=== PATIENT | female | born 1955 | race Hispanic/Latino ===

== ENCOUNTER 2022-09-16 13:00 | Observation (INO) | payer MEDICARE ==
[~2022-09-16] VITALS: Ht 154.9 cm; Wt 92.5 kg
[2022-09-20 10:19] LABS: BASOPHILS % (AUTO) 0.1 % (0.0-5.0); EOSINOPHILS % (AUTO) 2.9 % (0.0-8.0); HEMATOCRIT 41.8 % (36-48); LYMPHOCYTES % (AUTO) 20.5 % (21.0-51.0); MEAN CORPUSCULAR HEMOGLOBIN 29.4 pg (27.0-33.0); MEAN CORPUSCULAR HGB CONC 32.5 g/dL (32.0-36.0); MEAN CORPUSCULAR VOLUME 90.5 fL (79-99); MONOCYTES % (AUTO) 9.7 % (3.0-13.0); NEUTROPHILS % (AUTO) 66.5 % (40.0-77.0); PLATELET COUNT (AUTO) 186 K/uL (130-400); RED BLOOD CELL COUNT(AUTO) 4.62 MIL/uL (4.00-5.50); RED CELL DISTRIBUTION WIDTH 14.2 % (11.0-15.5); WHITE BLOOD COUNT (AUTO) 7.5 K/uL (4.8-10.8)
[2022-09-20 10:26] LABS: ALBUMIN 3.6 g/dL (3.5-5.0); CARBON DIOXIDE 31 mmol/L (21-32); CHLORIDE 102 mmol/L (101-111); CREATININE 0.7 mg/dL (0.5-1.5); GLOMERULAR FILTR. RATE CALC 88 mL/min (>60); GLUCOSE,RANDOM 103 mg/dL (70-105); POTASSIUM 4.3 mmol/L (3.5-5.1); SODIUM SERUM 137 mmol/L (136-145); UREA NITROGEN, BLOOD 17 mg/dL (7-18)
[2022-09-20 10:27] LABS: CRP QUANTITATIVE < 2.00 mg/L (0.00-9.0)
[2022-09-20 10:29] LABS: INR 0.93 (0.85-1.15); PROTHROMBIN TIME 9.9 SEC (9.6-11.6)
[2022-09-20 10:30] LABS: PARTIAL THROMBOPLASTIN TIME 25.4 SEC (26.3-35.5)
[2022-09-20 10:33] LABS: APPEARANCE,URINE CLEAR (CLEAR); BILIRUBIN,URINE NEGATIVE (NEGATIVE); COLOR,URINE YELLOW (YELLOW); GLUCOSE, URINE (UA) NEGATIVE (NEGATIVE); KETONES,URINE NEGATIVE (NEGATIVE); LEUKOCYTE ESTERASE ,URINE 25 Leu/uL (NEGATIVE); NITRATE,URINE NEGATIVE (NEGATIVE); OCCULT BLOOD,URINE NEGATIVE (NEGATIVE); PROTEIN,URINE 10 mg/dL (NEGATIVE); UROBILINOGEN,URINE 0.2 mg/dL (0.2-1.0)
[2022-09-20 10:55] LABS: BACTERIA,URINE FEW /HPF (None Seen); MUCUS,URINE FEW LPF (None Seen); SQUAMOUS EPITHELIAL CELL,UR FEW /HPF (0-2)
[2022-09-21 10:25] VITALS: BP 135/65
[2022-09-21] MEDS ORDERED: ACET-2027 PO (11:06)
[2022-09-21] MEDS ORDERED: METO-408 PO (11:06)
[2022-09-21] MEDS ORDERED: MONT-39 PO (11:06)
[2022-09-21] MEDS ORDERED: LISI20TA24 PO (11:06)
[2022-09-21] MEDS ORDERED: AEC81 PO (11:06)
[2022-09-21] MEDS ORDERED: VITAMIN D PO (11:06)
[2022-09-21] MEDS ORDERED: BENZ-70 PO (11:06)
[2022-09-21] MEDS ORDERED: OMEP40CA21 PO (11:06)
[2022-09-22] VITALS (22 sets, daily range): BP systolic 110–159; BP diastolic 52–72
[2022-09-22] MEDS ORDERED: LACTATED RINGERS 1000ML 1,000 ML IV ONE (07:57)
[2022-09-22] MEDS: CEFAZOLIN SODIUM 1 GM VIAL IVP SCH ×3 (08:00→21:06)
[2022-09-22] MEDS ORDERED: KETOROLAC 30MG VIAL (30MG/ML) ONE ×2 (08:50→09:34)
[2022-09-22] MEDS ORDERED: BUPIVACAINE/PF 0.5% 30ML VIAL ONE (08:50)
[2022-09-22] MEDS ORDERED: BUPIVACAINE/PF 0.25% 30ML VIAL IJ ONE (09:34)
[2022-09-22] MEDS ORDERED: KETAMINE 50MG/ML SYRINGE 50 MG/ML DISP.SYRIN IV ONE (10:11)
[2022-09-22] MEDS ORDERED: ROPIVACAINE 0.5% 5MG/ML 30ML IJ ONE (10:11)
[2022-09-22] MEDS ORDERED: TRANEXAMIC ACID 1000MG/10ML ONE (10:22)
[2022-09-22] MEDS ORDERED: LIDOCAINE PF 100MG/5ML (2%) SYRINGE 5ML ONE (11:45)
[2022-09-22] MEDS ORDERED: SUCCINYLCHOLINE 200MG/10ML SYR ONE (11:45)
[2022-09-22] MEDS ORDERED: DEXAMETHASONE SOD PHOSPHATE 10MG/ML 1ML VIAL ONE (11:46)
[2022-09-22] MEDS ORDERED: ONDANSETRON 4MG INJ ONE (11:46)
[2022-09-22] MEDS ORDERED: GLYCOPYRROLATE 1 MG/5 ML SYRINGE ONE (11:46)
[2022-09-22] MEDS ORDERED: MIDAZOLAM HCL 1 MG/ML 2ML VIAL ONE (11:47)
[2022-09-22] MEDS ORDERED: PROPOFOL 10 MG/ML 20ML VIAL IV ONE (11:47)
[2022-09-22] MEDS ORDERED: NEOSTIGMINE 5MG/5ML SYR IV ONE (11:47)
[2022-09-22] MEDS ORDERED: ROCURONIUM 10MG/1ML SYR 10 MG/ML ML ONE ×2 (11:47→13:03)
[2022-09-22] MEDS ORDERED: FENTANYL CITRATE PF 50 MCG/1 ML 2ML VIAL ONE (11:48)
[2022-09-22] MEDS ORDERED: TRANEXAMIC ACID 1000MG/10ML IV ONE (14:14)
[2022-09-22] MEDS ORDERED: 0.9%NACL 1000ML 1,000 ML IV SCH (15:00)
[2022-09-22] MEDS ORDERED: LIDOCAINE HCL-MPF 1% 2ML VIAL IV PRN (15:00)
[2022-09-22] MEDS ORDERED: KCL 20 MEQ ERTAB PO PRN (15:00)
[2022-09-22] MEDS ORDERED: POTASSIUM CHLORIDE 10% ELIXIR 20 MEQ/15 ML UDCUP PO PRN (15:00)
[2022-09-22] MEDS ORDERED: FERROUS FUMARATE 324 MG TABLET PO PRN (15:00)
[2022-09-22] MEDS ORDERED: CALCIUM CARB 500MG PO PRN (15:00)
[2022-09-22] MEDS ORDERED: ONDANSETRON 4MG INJ IVP PRN (15:00)
[2022-09-22] MEDS ORDERED: POTASSIUM CHLORIDE 20MEQ/100ML 100 ML IV PRN (15:00)
[2022-09-22] MEDS ORDERED: MEPERIDINE-PF 25 MG/ML SYG ONE (15:32)
[2022-09-22] MEDS ORDERED: KETOROLAC 15MG/ML VIAL (15MG/ML) IV PRN (18:00)
[2022-09-22] MEDS ORDERED: CYCLOBENZAPRINE HCL 10 MG TABLET PO PRN (18:00)
[2022-09-22] MEDS ORDERED: HYDROCODONE/ACETAMINOPHEN 5/325 MG TAB PO PRN (18:00)
[2022-09-22] MEDS ORDERED: KETOROLAC 15MG/ML VIAL (15MG/ML) ONE (18:03)
[2022-09-22] MEDS ORDERED: MONTELUKAST SODIUM 10 MG TAB PO PRN (19:00)
[2022-09-22] MEDS ORDERED: PANTOPRAZOLE 40 MG TAB DR PO PRN (19:00)
[2022-09-22] MEDS ORDERED: BENZONATATE 100 MG CAPSULE PO PRN (19:00)
[2022-09-22] MEDS ORDERED: LISINOPRIL 20 MG TABLET ONE (19:56)
[2022-09-22] MEDS: DOCUSATE SODIUM 100 MG CAP PO SCH (21:06)
[2022-09-22] MEDS: LISINOPRIL 20 MG TABLET PO SCH (21:07)
[2022-09-22] MEDS: GABAPENTIN 100 MG CAPSULE PO SCH (21:16)
[2022-09-23] MEDS: HYDROCODONE/ACETAMINOPHEN 5/325 MG TAB PO PRN ×3 (01:03→20:24)
[2022-09-23] MEDS: CEFAZOLIN SODIUM 1 GM VIAL IVP SCH (03:30)
[2022-09-23 04:25] VITALS: BP 105/60
[2022-09-23 05:32] LABS: HEMATOCRIT 35.9 % (36-48); MEAN CORPUSCULAR HEMOGLOBIN 29.5 pg (27.0-33.0); MEAN CORPUSCULAR HGB CONC 33.1 g/dL (32.0-36.0); MEAN CORPUSCULAR VOLUME 88.9 fL (79-99); RED BLOOD CELL COUNT(AUTO) 4.04 MIL/uL (4.00-5.50); RED CELL DISTRIBUTION WIDTH 13.8 % (11.0-15.5)
[2022-09-23 05:51] LABS: CREATININE 0.9 mg/dL (0.5-1.5); POTASSIUM 4.3 mmol/L (3.5-5.1)
[2022-09-23 07:30] VITALS: BP 90/56
[2022-09-23] MEDS: POLYETHYLENE GLYCOL 3350 17 GM POWD.PACK PO SCH (09:19)
[2022-09-23] MEDS: GABAPENTIN 100 MG CAPSULE PO SCH ×3 (09:19→19:30)
[2022-09-23] MEDS: DOCUSATE SODIUM 100 MG CAP PO SCH ×2 (09:19→19:30)
[2022-09-23] MEDS: ASPIRIN 325MG TAB PO SCH (09:19)
[2022-09-23] MEDS: METOPROLOL SUCCINATE 25 MG TAB.SR.24H PO SCH (09:19)
[2022-09-23 12:00] VITALS: BP 90/51
[2022-09-23 16:00] VITALS: BP 92/44
[2022-09-23] MEDS: LISINOPRIL 20 MG TABLET PO SCH ×2 (19:31→20:24)
[2022-09-23 20:00] VITALS: BP 104/54
[2022-09-24] VITALS: BP 102/55
[2022-09-24] MEDS: HYDROCODONE/ACETAMINOPHEN 5/325 MG TAB PO PRN ×2 (02:53→07:56)
[2022-09-24 04:00] VITALS: BP 100/54
[2022-09-24] MEDS: ASPIRIN 325MG TAB PO SCH (07:55)
[2022-09-24] MEDS: POLYETHYLENE GLYCOL 3350 17 GM POWD.PACK PO SCH (07:55)
[2022-09-24] MEDS: DOCUSATE SODIUM 100 MG CAP PO SCH (07:55)
[2022-09-24] MEDS: METOPROLOL SUCCINATE 25 MG TAB.SR.24H PO SCH ×2 (07:56→09:00)
[2022-09-24 08:00] VITALS: BP 111/55
[2022-09-24 11:16] VITALS: BP 81/39
[2022-09-24] MEDS ORDERED: GABAPENTIN 100 MG CAPSULE PO SCH (14:00)
[2022-09-24] MEDS ORDERED: HYDR-4060 PO (14:18)
[2022-09-24] MEDS ORDERED: GABA100C PO (14:18)
[2022-09-24] MEDS ORDERED: DOCU-116 PO (14:18)
[2022-09-24] MEDS ORDERED: CYCL-309 PO (14:18)
[2022-09-24] MEDS ORDERED: ASPI-1026 PO (14:18)
[2022-09-24 16:00] VITALS: BP 102/54
[2022-09-25] MEDS ORDERED: BISACODYL 10 MG SUPP.RECT RC PRN (15:00)
[2022-09-29] MEDS ORDERED: VITAMIN D 50000 UNIT PO SCH (09:00)
== END 2022-09-24 17:55 | disposition home health service (06) ==
LOC: DAHIP 09-22 07:50 → EDSTATUS 09-22 13:00 → 4DH 09-22 16:12
PROVIDERS: ADMIT Student in an Organized Health Care Education/Training Program; ATTEND Student in an Organized Health Care Education/Training Program
DX: M17.12 Unilateral primary osteoarthritis, left knee (principal); Z20.822 Contact with and (suspected) exposure to COVID-19; M25.562 Pain in left knee; I10 Essential (primary) hypertension; D64.9 Anemia, unspecified; Z79.82 Long term (current) use of aspirin; Z79.899 Other long term (current) drug therapy; Z98.890 Other specified postprocedural states
CPT/HCPCS: 82040; 80048 ×2; 85025; 85610; 85730; 87088; 84134; 86140; 87426; 81001; 36415 ×2; 87641; 27447; 96374; 76942; 64447; 73560; 97039 ×4; 96376; 96375 ×2; 85027; 97161; 97116 ×4; 97530 ×3; G0378 ×49; G0379; A4663; A4215 ×2; J7120; J3010; J0690 ×3; J3490 ×6; J0330; J1100; J2710; J2001; J2250; J2704; J2405 ×2; J1885 ×4; J2175; J2795; G0168; A4649 ×3; C1776; A6255; A5120; A4223; A4222; A4221